=== PATIENT | male | born 1945 | race Two or more races ===

== ENCOUNTER 2016-10-31 10:37 | Emergency (ER) | payer OTHER ==
[~2016-10-31] VITALS: Ht 182.9 cm; Wt 76.7 kg
--- NOTE | 2016-10-31 11:09 | EKG ---
[facility] [address] [place] [address] Test Date: 2016-10-31 Test Time: 10:50:30 Pat Name: HALLIE RODRIGUEZ Department: Room: Gender: M Sling Operator: ASH : 1945 Requested By: REGGIE FOX Order Number: [id number] Reading MD: Chantelle Schwartz Measurements Intervals [place] Rate: 69 P: 26 CT: 142 QRS: -1 QRSD: 82 T: 34 QT: 358 QTc: 385 Interpretive Statements SINUS RHYTHM LEFTWARD AXIS OTHERWISE NORMAL ECG RI6.01 Unconfirmed report No previous ECG available for comparison Electronically Signed On 10-31-2016 16:00:25 CDT by Chantelle Schwartz
[2016-10-31] MEDS ORDERED: KETOROLAC TROMETHAMINE 30 MG/ML INJ. IV ONE (11:15)
[2016-10-31] MEDS ORDERED: LIDO:MAALOX:DONNATAL 1:1:1 15 ML SINGLE DOSE SWSW ONE (11:15)
[2016-10-31] MEDS ORDERED: ASPIRIN ENTERIC COATED 325 MG TABLET.DR. PO ONE (11:15)
[2016-10-31] MEDS ORDERED: ONDANSETRON PF 4 MG/2 ML VIAL. IV ONE (11:15)
[2016-10-31] MEDS ORDERED: PANTOPRAZOLE 40 MG TABLET.DR. PO ONE (11:15)
[2016-10-31 11:20] LABS: BASO # 0.1 x10^3/uL (0.0-0.2); BASO % 1 % (0-3); EOS % 3 % (0-3); HEMATOCRIT 38.7 % (39.0-53.0); HEMOGLOBIN 13.3 g/dL (13.0-17.5); LYMPH # 2.6 x10^3/uL (1.0-4.8); LYMPH % 24 % (24-48); MEAN CORPUSCULAR HEMOGLOBIN 30 pg (25-35); MEAN CORPUSCULAR HGB CONC 34 g/dL (31-37); MEAN CORPUSCULAR VOLUME 86 fL (79-100); MONO % 8 % (0-9); NEUT % 64 % (31-73); PLATELET COUNT 199 x10^3/uL (140-400); RED BLOOD COUNT 4.49 x10^6/uL (4.30-5.70); RED CELL DISTRIBUTION WIDTH 13.6 % (11.5-14.5); WHITE BLOOD COUNT 10.5 x10^3/uL (4.0-11.0)
--- NOTE | 2016-10-31 11:20 | RAD ---
EXAM: Chest, single view. HISTORY: Chest pain. COMPARISON: None. FINDINGS: A frontal view of the chest is obtained. There is suspected mild lower lobe predominant atelectasis. There is no consolidation, effusion or pneumothorax. The cardiac silhouette is normal in size for portable technique. IMPRESSION: No acute pulmonary finding.
[2016-10-31 11:25] LABS: GFR 73.9
[2016-10-31 11:30] LABS: ALBUMIN 3.2 g/dL (3.4-5.0); ALBUMIN/GLOBULIN RATIO 0.8 (1.0-1.7); MAGNESIUM 2.1 mg/dL (1.8-2.4); PROTHROMBIN TIME PATIENT 12.8 SEC (11.7-14.0); TOTAL BILIRUBIN 0.4 mg/dL (0.2-1.0); TOTAL PROTEIN 7.2 g/dL (6.4-8.2)
--- NOTE | 2016-10-31 11:30 | PHYS DOC ---
Past Medical History Past Medical History: UTI, Other Additional Past Medical Histor: ALZHEIMERS, LOWER BACK PAIN Past Surgical History: No Surgical History Additional Information: 3 CIGARETTES A DAY, PT REPORTS "QUIT SMOKINGL LAST WEEK." Alcohol Use: None Drug Use: None Adult General Chief Complaint Chief Complaint: COUGH HPI HPI Patient is a 71 year old male that is non-Chinese speaking is presenting to the emergency department for evaluation of cough chest pain and shortness of breath. Patient's son is present and is translating for the patient and I recommended to a blue phone plant changer however they refused stating that they' re comfortable translating. Patient has had a cough for 1 month straight that is productive of clearish mucus. The shortness of breath happens with the cough. Patient has 8 out of 10 chest pain that is achy in nature with no radiation diaphoresis nausea vomiting. This chest pain happens with the cough but he also has constant pain in between the coughing spells. Patient is reportedly healthy with no diabetes hypertension high cholesterol smoking or cardiac history. He has never had any cardiac risk stratification. He is in no obvious distress with normal vital signs. Review of Systems Review of Systems Constitutional: Denies fever or chills [] Eyes: Denies change in visual acuity, redness, or eye pain [] HENT: Denies nasal congestion or sore throat [] Respiratory: + cough and shortness of breath [] Cardiovascular: + CP GI: Denies abdominal pain, nausea, vomiting, bloody stools or diarrhea [] : Denies dysuria or hematuria [] Musculoskeletal: Denies back pain or joint pain [] Integument: Denies rash or skin lesions [] Neurologic: Denies headache, focal weakness or sensory changes [] Current Medications Current Medications Current Medications Medications (Trade) Dose Ordered Sig/[facility] Start Time Stop Time Status Last Admin Dose Admin Aspirin (Ecotrin) 325 mg 1X ONCE 10/31/16 11:15 10/31/16 11:16 DC 10/31/16 11:32 325 MG Ketorolac Tromethamine (Toradol) 15 mg 1X ONCE 10/31/16 11:15 10/31/16 11:16 DC 10/31/16 11:30 15 MG Multi-Ingredient Mouthwash/Gargle (Gi Cocktail Single Dose) 15 ml 1X ONCE 10/31/16 11:15 10/31/16 11:16 DC 10/31/16 11:33 15 ML Ondansetron HCl (Zofran) 4 mg 1X ONCE 10/31/16 11:15 10/31/16 11:16 DC 10/31/16 11:27 4 MG Pantoprazole Sodium (Protonix) 40 mg 1X ONCE 10/31/16 11:15 10/31/16 11:16 DC 10/31/16 11:32 40 MG Allergies Allergies Allergies Coded Allergies Type Severity Reaction Last Updated Verified No Known Drug Allergies 09/02/15 No Physical Exam Physical Exam Constitutional: Well developed, well nourished, no acute distress, non-toxic appearance. [] HENT: Normocephalic, atraumatic, bilateral external ears normal, oropharynx moist, no oral exudates, nose normal. [] Eyes: PERRLA, EOMI, conjunctiva normal, no discharge. [] Neck: Normal range of motion, no tenderness, supple, no stridor. [] Cardiovascular:Heart rate regular rhythm, no murmur [] Lungs & Thorax: Bilateral breath sounds clear to auscultation [] Abdomen: Bowel sounds normal, soft, no tenderness, no masses, no pulsatile masses. [] Skin: Warm, dry, no erythema, no rash. [] Back: No tenderness, no CVA tenderness. [] Extremities: No tenderness, no cyanosis, no clubbing, ROM intact, no edema. [] Neurologic: Alert and oriented X 3, normal motor function, normal sensory function, no focal deficits noted. [] Psychologic: Affect normal, judgement normal, mood normal. [] Current Patient Data Vital Signs Vital Signs Date Time Temp Pulse Resp B/P (MAP) Pulse Ox O2 Delivery O2 Flow Rate FiO2 10/31/16 10:45 97.6 62 20 126/73 (90) 96 Room Air 97.6 Lab Values Laboratory Tests Test 10/31/16 10:52 White Blood Count 10.5 x10^3/uL (4.0-11.0) Red Blood Count 4.49 x10^6/uL (4.30-5.70) Hemoglobin 13.3 g/dL (13.0-17.5) Hematocrit 38.7 % (39.0-53.0) L Mean Corpuscular Volume 86 fL (79-100) Mean Corpuscular Hemoglobin 30 pg (25-35) Mean Corpuscular Hemoglobin Concent 34 g/dL (31-37) Red Cell Distribution Width 13.6 % (11.5-14.5) Platelet Count 199 x10^3/uL (140-400) Neutrophils (%) (Auto) 64 % (31-73) Lymphocytes (%) (Auto) 24 % (24-48) Monocytes (%) (Auto) 8 % (0-9) Eosinophils (%) (Auto) 3 % (0-3) Basophils (%) (Auto) 1 % (0-3) Neutrophils # (Auto) 6.8 x10^3uL (1.8-7.7) Lymphocytes # (Auto) 2.6 x10^3/uL (1.0-4.8) Monocytes # (Auto) 0.8 x10^3/uL (0.0-1.1) Eosinophils # (Auto) 0.3 x10^3/uL (0.0-0.7) Basophils # (Auto) 0.1 x10^3/uL (0.0-0.2) Prothrombin Time 12.8 SEC (11.7-14.0) Prothrombin Time INR 1.0 (0.8-1.1) PTT 34 SEC (24-38) Sodium Level 139 mmol/L (136-145) Potassium Level 4.0 mmol/L (3.5-5.1) Chloride Level 104 mmol/L (98-107) Carbon Dioxide Level 24 mmol/L (21-32) Anion Gap 11 (6-14) Blood Urea Nitrogen 13 mg/dL (8-26) Creatinine 1.0 mg/dL (0.7-1.3) Estimated GFR (Cockcroft-Gault) 73.9 BUN/Creatinine Ratio 13 (6-20) Glucose Level 127 mg/dL (70-99) H Lactic Acid Level 1.2 mmol/L (0.4-2.0) Calcium Level 9.0 mg/dL (8.5-10.1) Magnesium Level 2.1 mg/dL (1.8-2.4) Total Bilirubin 0.4 mg/dL (0.2-1.0) Aspartate Amino Transferase (AST) 23 U/L (15-37) Alanine Aminotransferase (ALT) 27 U/L (16-63) Alkaline Phosphatase 78 U/L (46-116) Creatine Kinase 177 U/L (39-308) Troponin I Quantitative < 0.017 ng/mL (0.000-0.055) TU-[id number]-[id number]-Type Natriuretic Peptide 223 pg/mL (0-124) H Total Protein 7.2 g/dL (6.4-8.2) Albumin 3.2 g/dL (3.4-5.0) L Albumin/Globulin Ratio 0.8 (1.0-1.7) L Lipase 133 U/L (73-393) Laboratory Tests 10/31/16 10:52 Laboratory Tests 10/31/16 10:52 EKG EKG Normal sinus rhythm at 69 bpm with leftward axis no obvious ST elevation or depression with normal T waves. Radiology/Procedures Radiology/Procedures EXAM: Chest, single view. HISTORY: Chest pain. COMPARISON: None. FINDINGS: A frontal view of the chest is obtained. There is suspected mild lower lobe predominant atelectasis. There is no consolidation, effusion or pneumothorax. The cardiac silhouette is normal in size for portable technique. IMPRESSION: No acute pulmonary finding. DICTATED and SIGNED BY: PORTER NG MD DATE: 10/31/16 1112 Course & Med Decision Making Course & Med Decision Making Patient has a cough for one month and chest pain as well. His EKG and troponin are negative more than 6 hours out from the onset of pain. His symptoms are quite atypical however given his age and language barrier I recommended admission for further observation and treatment. They asked me what is most likely going on and I told them that he most likely has bronchitis and less likely heart disease blood clot or other vascular abnormality. Patient and son said that he wanted to go home and be treated for the bronchitis and follow with his doctor as an outpatient. They verbalize understanding that he could have a life-threatening diagnosis and the reasons why I wanted to admit him. Patient will be discharged with Levaquin and albuterol and [place] and told to follow with primary care provider and/or darklight inspector within 72 hours and to not exert himself and to come back to the ER sooner with any worsening pain fevers vomiting or other general concerns. Patient discharged in stable condition with normal vital signs. Dragon Disclaimer Dragon Disclaimer This electronic medical record was generated, in whole or in part, using a voice recognition dictation system. Departure Departure Impression: Primary Impression: Chest pain Additional Impression: Bronchitis Disposition: 01 HOME, SELF-CARE Condition: GOOD Referrals: GAMAL HERNANDEZ MD (PCP) TAMIA OLIVA MD Patient Instructions: Bronchitis Additional Instructions: TAKE 400MG OF IBUPROFEN EVERY 6 HOURS FOR PAIN/FEVER AND THE NORCO FOR THE BREAKTHROUGH PAIN/COUGH. FOLLOW WITH YOUR PCP/CARDIOLGIST IN THE NEXT 72 HOURS AND COME BACK TO THE ED SOONER WITH ANY NEW OR WORSENING SYMPTOMS. THANK YOU! Scripts Levofloxacin (LEVAQUIN) 500 Mg Tablet 1 TAB PO DAILY, #5 TAB Prov: REGGIE FOX DO 10/31/16 Hydrocodone/Apap 5-325 (NORCO 5-325 TABLET) 1 Each Tablet 1 TAB PO PRN Q6HRS Y for PAIN, #14 TAB 0 Refills Prov: REGGIE FOX DO 10/31/16 Albuterol Sulfate (PROAIR HFA INHALER) 8.5 Gm Hfa.aer.ad 1 PUFF INH Q4HRS Y for SHORTNESS OF BREATH, #1 INHALER 0 Refills Prov: REGGIE FOX DO 10/31/16 Problem Qualifiers Primary Impression: Chest pain Chest pain type: unspecified Qualified Codes: R07.9 - Chest pain, unspecified REGGIE FOX DO October 31, 2016 11:30
[2016-10-31] MEDS ORDERED: PROAIR HFA8.5 GM INH (12:04)
[2016-10-31] MEDS ORDERED: LEVO500T38 PO (12:04)
[2016-10-31] MEDS ORDERED: HYDR-971 PO (12:04)
[2016-10-31 12:30] VITALS: BP 124/71
== END 2016-10-31 12:36 | disposition home or self-care (01) ==
LOC: ER 10:37
DX: J40 Bronchitis, not specified as acute or chronic (principal); G30.9 Alzheimer's disease, unspecified; F02.80 Dementia in other diseases classified elsewhere, unspecified severity, without behavioral disturbance, psychotic disturbance, mood disturbance, and anxiety; F17.210 Nicotine dependence, cigarettes, uncomplicated; Z87.440 Personal history of urinary (tract) infections
CPT/HCPCS: 36415; 71010; 80053; 82550; 83605; 83690; 83735; 83880; 84484; 85027; 85610; 85730; 93005; 96374; 96375; 99285; J1885; J2405